=== PATIENT | female | born 1970 | race Caucasian/White ===

== ENCOUNTER 2021-06-17 16:40 | Emergency (ER) | payer BC ==
[~2021-06-17] VITALS: Ht 175.3 cm; Wt 80.0 kg
[2021-06-17] MEDS ORDERED: ZPAK PO (17:35)
[2021-06-17 17:38] VITALS: BP 122/82
== END 2021-06-17 17:45 | disposition home or self-care (01) | DRG 179 ==
LOC: ED 16:40
DX: U07.1 COVID-19 (principal)

== ENCOUNTER 2021-08-17 07:38 | Emergency (ER) | payer SELFPAY ==
[~2021-08-17] VITALS: Ht 175.3 cm; Wt 80.0 kg
[~2021-08-17 07:38] MED LIST: ZPAK PO
[2021-08-17 10:00] VITALS: BP 124/66
== END 2021-08-17 10:00 | disposition home or self-care (01) | DRG 195 ==
LOC: ED 07:38
DX: J10.1 Influenza due to other identified influenza virus with other respiratory manifestations (principal); Z20.822 Contact with and (suspected) exposure to COVID-19

== ENCOUNTER 2024-09-18 17:52 | Emergency (ER) | payer SELFPAY ==
[~2024-09-18] VITALS: Ht 175.3 cm; Wt 79.3 kg
[2024-09-18] MEDS ORDERED: ALBUTEROL SULFATE 2.5 MG VIAL NEB ONE (20:05)
[2024-09-18] MEDS ORDERED: AMOXICILLIN & POT CLAVULANATE 500 MG/TAB PO ONE (20:05)
[2024-09-18] MEDS ORDERED: predniSONE 20 MG/TAB PO ONE (20:05)
[2024-09-18] MEDS ORDERED: AMOX/K CLAV875 M1 PO (20:30)
[2024-09-18] MEDS ORDERED: VENTOLIN HFA108 MCG PO (20:30)
[2024-09-18] MEDS ORDERED: PREDNISONE20 MG PO (20:30)
[2024-09-18 20:52] VITALS: BP 167/92
== END 2024-09-18 20:52 | disposition home or self-care (01) | DRG 153 ==
LOC: ED 17:52
DX: J32.9 Chronic sinusitis, unspecified (principal); J45.909 Unspecified asthma, uncomplicated; Z20.822 Contact with and (suspected) exposure to COVID-19